=== PATIENT | female | born 2000 | race African-American/Black ===

== ENCOUNTER 2019-12-02 10:51 | Observation (INO) | payer BC, OTHER, SELFPAY ==
[2019-12-02] VITALS (7 sets, daily range): BP systolic 100–105; BP diastolic 50–66; PULSE 73–87; TEMP 36.8; BMI 30.7
--- NOTE | 2019-12-02 11:27 | OBADM ---
This patient, Karley Huerta, admitted to the OB room 116 at 1051 for observation for lower abdominal cramping. Patient/family oriented to hospital policies and general routines including ID bracelet, bed and alarms, visiting hours, pain management, procedures, bathroom and other care routines, personal items, smoking policy, room service/diet, and visiting hours. Patient/Family are encouraged to report perceived risks to care and to ask questions if they do not understand what they are told or what they should do.
[2019-12-02 11:28] LABS: Add Urine Microscopic? NO; Appearance Urine Clear (Clear); Bilirubin Urine Negative (Negative); Blood Urine Negative (Negative); Color Urine Yellow (Yellow); Glucose Urine UA Negative (Negative); Ketones Urine Negative (Negative); Leukocyte Esterase Ur Negative LEU/UL (Negative); Nitrate Urine Negative (Negative); Protein Urine Negative (Negative); Urobilinogen Urine Negative mg/dL (<2.0)
[2019-12-02 12:45] LABS: Fetal Fibronectin Negative
--- NOTE | 2019-12-08 11:20 | P.PNOB_ITS ---
OB - Triage/Final Diagnosis Visit Information Reason for evaluation: threatened labor Evaluation Laboratory results: Laboratory Tests 12/02/19 12/02/19 11:18 12:07 Urine Color Yellow Urine Appearance Clear Urine pH 6.0 Ur Specific [place] 1.020 Urine Protein Negative Urine Glucose (UA) Negative Urine Ketones Negative Ur Blood (Man) Negative Urine Nitrate Negative Urine Bilirubin Negative Urine Urobilinogen Negative Leukocyte Esterase Rfl Negative Fibronectin Negative
== END 2019-12-02 13:18 | disposition home or self-care (01) ==
PROVIDERS: Admitting Provider Obstetrics & Gynecology Gynecology; Visit Provider Obstetrics & Gynecology Gynecology
DX: O47.9 False labor, unspecified (principal); Z3A.00 Weeks of gestation of pregnancy not specified
CPT/HCPCS: 81003; 82731; G0378; G0379

== ENCOUNTER 2020-02-25 12:14 | Outpatient (CLI) | payer OTHER, SELFPAY ==
[2020-02-25 13:42] LABS: Hematocrit 36.5 % (37.0-47.0); Hemoglobin 11.5 g/dL (12.0-15.0); Immature Platelet Fraction Pct 4.3 % (0.9-11.2); Mean Corpuscular HGB Conc 31.5 g/dl (32-36); Mean Corpuscular Hemoglobin 25.7 pg (26-34); Mean Corpuscular Volume 81.5 fl (80-100); Mean Platelet Volume 10.8 fl (7.4-10.4); Platelet Count Result 175 k/mm3 (150-375); Red Blood Count 4.48 M/mm3 (4.2-5.4); Red Cell Distribution Width 23.1 % (11.5-14.5); White Blood Count 7.5 K/mm3 (4.5-10.0)
[2020-02-26 11:09] LABS: Rapid Plasma Reagin Non-Reactive (NonReactive)
== END 2020-02-25 12:15 | disposition home or self-care (01) ==
PROVIDERS: Visit Provider Obstetrics & Gynecology
DX: Z01.812 Encounter for preprocedural laboratory examination (principal); O34.219 Maternal care for unspecified type scar from previous cesarean delivery
CPT/HCPCS: 36415; 85027; 85055; 86592; 86850; 86900; 86901

== ENCOUNTER 2020-02-26 09:50 | Inpatient (IN) | payer OTHER, SELFPAY ==
[2020-02-26] VITALS (49 sets, daily range): BP systolic 80–99; BP diastolic 34–67; PULSE 47–87; RESP 16–18; TEMP 36.1–36.8; O2SAT 64–100
--- NOTE | 2020-02-26 09:56 | LDADM ---
This patient, Karley Huerta, was admitted to Labor/Delivery/Recovery 119 on 02/26/20 at 09:50. Plans for C/S, pain management and were discussed with patient. Patient/family oriented to hospital policies and general routines including ID bracelet, bed and alarms, visiting hours, pain management, procedures, bathroom and other care routines, personal items, smoking policy, room service/diet and guest tray routines, security routines, and visiting hours. Patient/Family are encouraged to report perceived risks to care and to ask questions if they do not understand what they are told or what they should do.
--- NOTE | 2020-02-26 10:34 | WPDANESEPP ---
Anes - Eval Pre Procedure Procedure: Operation Date: 02/26/20 12:00 Proposed Procedures p Repeat Section - Lorenzo Toledo MD Date/Time: 02/26/20 10:34 Pre Op Diagnosis: Repeat C/Section Patient Data Age: 19 Gender: F Height: 1.5 m Weight: 73.5 kg Last Vital Signs Pulse 87 02/26/20 10:15 BP 96/64 L 02/26/20 10:15 Allergies Allergy/AdvReac Type Severity Reaction Status Date / Time No Known Allergies Allergy Verified 02/26/20 10:21 Home Medications Medication Instructions Recorded Confirmed Type Classic 1 tablet PO DAILY 12/02/19 02/26/20 History ferrous sulfate 325 mg PO BID 12/02/19 02/26/20 History Patient hx anesthesia problems: none Family hx anesthesia problems: none PMFSH Family History Family History (Updated 02/07/20 @ 12:47 by Evelyn Louise RN) Other No pertinent family history Social History Social History Smoking status: Never smoker Substance use: never Gender identity (if verbalized by the patient): Female Spiritual care concerns: No Exam Day of Procedure 02/26/20 10:34 Patient weight: obese Heart: regular rate and rhythm Lungs: normal air movement Airway: Mallampati scale class 1 Neurological: alert and oriented
[2020-02-26] MEDS: LACTATED RINGERS 1,000 ML 125 ML IV CONT ×2 (10:37→11:40)
--- NOTE | 2020-02-26 10:44 | WPDANESEFPP ---
Anes - Eval Final PreProcedure Day of Procedure 02/26/20 10:44 Patient weight: obese Heart: regular rate and rhythm Lungs: clear to auscultation Airway: Mallampati scale class 1 Neurological: alert and oriented Last oral intake: >/= 8 hours ASA classification: II Emergent: no Anesthetic plan: proceed Anesthesia type and monitoring: regional spinal and standard monitoring Informed Consent: The patient's anesthetic plan and its attendant risks and benefits were discussed with the patient/family/POA. Questions were solicited and answers provided to the satisfaction of the patient/family/POA.
--- NOTE | 2020-02-26 11:24 | PM.IMHP ---
H&P: HPI History of Present Illness Date/Time: 02/26/20 11:24 Chief Complaint: desires repeat csection Narrative: Karley Huerta is a 19 year old female @ 39 weeks by lmp 05/29/19 c/w ultrasound for an EDC of 03/04/20. complicated by prior csection and anemia. Patient reports positive movement denies leakage of fluid and feels occasional contractions. Review of Systems Review of Systems: Narrative: back pain PMFSH Past Medical History Medical History (Updated 02/26/20 @ 11:28 by Lorenzo Toledo MD) Delivery with history of Family History Family History Other No pertinent family history Social History Social History Smoking status: Never smoker Substance use: never Gender identity (if verbalized by the patient): Female Spiritual care concerns: No Meds Home Medications and Allergies Home Medications Medication Instructions Recorded Confirmed Type Classic 1 tablet PO DAILY 12/02/19 02/26/20 History ferrous sulfate 325 mg PO BID 12/02/19 02/26/20 History Allergies Allergy/AdvReac Type Severity Reaction Status Date / Time No Known Allergies Allergy Verified 02/26/20 10:21 Vital Signs Vital Signs - 24 hr 02/26/20 10:15 02/26/20 10:41 02/26/20 10:47 Temperature 36.8 C Pulse Rate 87 Blood Pressure 96/64 L Pulse Oximetry 95 100 Exam Const: General: no acute distress Resp: Effort & Inspection: normal respiratory effort Cardio: Rate: regular rate Rhythm: regular rhythm GI: Other: Gravid nontender Assessment and Plan Assessment and plan (1) Delivery with history of : Code(s): O34.219 - Maternal care for unspecified type scar from previous delivery Status: Acute Assessment and Plan: Scheduled for a repeat csection. Risk and benefits reviewed with patient in detail. Patient agrees to proceed with csection.
[2020-02-26] MEDS: ceFAZolin 2 GM/D5W 50 ML 2 GM/50 ML BAG IVPB (11:54)
[2020-02-26] MEDS: LACTATED RINGERS 1,000 ML 999 ML IV CONT (12:16)
--- NOTE | 2020-02-26 12:49 | P.PCNOB_ITS ---
OB - Delivery Note Procedure Delivery date: 02/26/20 Procedure: Procedures Operation Date: 02/26/20 12:00 <No data on this case meets the specified criteria> Repeat LTCS events: Previous Intrapartal events: None Induction method: none Delivery monitor: external FHT and external uterine Route of delivery: Specimen: No Quantitative Blood Loss (ml): 505 Anesthesia type: Spinal Disposition: PACU [place] Baby Date of : 02/26/20 Time of : 12:21 Weeks of gestation at delivery: 39 Infant gender: Male Weight (pounds): 7 Weight (ounces): 12 presentation: vertex position: Left Occiput Anterior Placenta delivery description: Spontaneous cord vessel description: 3 Vessels score one minute: 8 score five minutes: 9
--- NOTE | 2020-02-26 12:51 | PM.PROC ---
Procedure Note - Detailed Date of procedure: 02/26/20 Pre-op diagnosis: Repeat C/Section Post-op diagnosis: same Procedure performed: repeat LTCS Description of procedure: Patient was taken to the operating room with IV running. She was prepped and draped in normal sterile fashion and placed a supine position with a leftward tilt. A Pfannenstiel skin incision was then made with a scalpel and carried down to the underlying layer of fascia. This excision was then extended bilaterally with Linares scissors. Superior aspect of the incision was grasped Judy and elevated and dissected off the rectus muscles. The inferior aspect of the incision was grasped with Judy clamps elevated and dissected off the rectus muscles. The rectus muscles were in the midline and peritoneum was entered bluntly bladder blade was inserted and the vesicouterine peritoneum was grasped with pickups and entered sharply with Metzenbaum scissors creating bladder flap with sharp and blunt dissection. Bladder blade was reinserted the lower uterine segment was incised in a transverse fashion. This incision was extended bluntly and the head was delivered atraumatically. The remainder of the fetus was delivered cord was clamped and cut the fetus was handed to awaiting nurse cord blood and cord gases were obtained. The placenta was delivered spontaneously. The uterus was exteriorized and cleared of all clots and debris. Uterine incision was closed with 0 Monocryl in running locked fashion a 2nd layer the same suture was used to imbricate this incision. Uterus was returned to the abdomen liver Interceed was placed in a T-fashion. The gutters were cleared of all clots and debris. The muscles were examined and noted to be hemostatic. The fascia was closed with 0 Vicryl in a running fashion. The subcutaneous tissue was irrigated hemostasis assured and the skin was closed with 0 Vicryl on a Eliot needle patient received 2 g Ancef prior to skin incision. Anesthesia: spinal Surgeon: Lorenzo Toledo MD Estimated blood loss (mL): 505 Urine output (mL): 100 Drains: No Packing: No Pathology: none sent Complications: None Condition: stable Disposition: PACU Findings: male inant normal tubes and ovaries.
[2020-02-26] MEDS: OXYTOCIN 30 UNITS/NS 500 ML 30 UNITS/500 ML BAG 125 UNITS IV CONT (13:03)
--- NOTE | 2020-02-26 15:45 | OBPPTRN ---
1504 Patient transferred to post room #284 via stretcher. Support person present. Oriented to unit, room, information board, rooming in, admission packet and security measures. Patient verbalizes understanding.
[2020-02-26] MEDS: KCL 20 MEQ/D5/0.45% SOD CHL 1,000 ML 125 ML (17:50)
--- NOTE | 2020-02-26 18:45 | PC.NURSE ---
Labor RN informed pt that she could eat a regular diet just to make it light. The pt V/U'd
[2020-02-26] MEDS: ACETAMINOPHEN 325 MG TABLET 650 MG PO (19:24)
[2020-02-26] MEDS: IBUPROFEN 600 MG TABLET PO (22:46)
[2020-02-27] MEDS: HYDROcodone/acetaminophen (*CRX) 5-325 MG TABLET 1 TAB PO ×3 (01:21→10:27)
[2020-02-27 04:00] VITALS: BP 101/46; PULSE 60; RESP 18; TEMP 36.4; O2SAT 100
[2020-02-27 04:59] LABS: Basophils Percent Auto 0.4 % (0.2-1.2); Eosinophils Absolute Auto 0.1 K/mm3 (0-0.3); Eosinophils Percent Auto 0.6 % (0-4.4); Hematocrit 31.4 % (37.0-47.0); Hemoglobin 10.1 g/dL (12.0-15.0); Immature Granulocyte Absolute 0.04 K/mm3 (0.00-0.031); Immature Granulocyte Percent A 0.5 % (0-0.5); Lymphocytes Percent Auto 16.4 % (18.3-44.2); Mean Corpuscular HGB Conc 32.2 g/dl (32-36); Mean Corpuscular Hemoglobin 25.6 pg (26-34); Mean Corpuscular Volume 79.7 fl (80-100); Mean Platelet Volume 10.5 fl (7.4-10.4); Monocytes Absolute Auto 0.6 K/mm3 (0.1-0.6); Monocytes Percent Auto 7.3 % (2.6-8.5); Neutrophils Absolute Auto 5.9 K/mm3 (1.3-6.7); Neutrophils Percent Auto 74.8 % (45.5-73.1); Platelet Count Result 155 k/mm3 (150-375); Red Blood Count 3.94 M/mm3 (4.2-5.4); Red Cell Distribution Width 22.6 % (11.5-14.5); White Blood Count 7.9 K/mm3 (4.5-10.0)
[2020-02-27] MEDS: IBUPROFEN 600 MG TABLET PO ×3 (05:48→20:30)
--- NOTE | 2020-02-27 07:43 | WPDANLDPN2 ---
Anes-Prog Note L&D Date/Time: 02/27/20 07:43 Comfortable throughout: section Neuraxial method: spinal Epidural/Spinal procedure site: clean & non-tender Neuro status: Neuro function grossly intact. Cardiovascular status: normal Respiratory status: normal Airway patency: baseline Mental status: baseline Post-Op hydration status: normal Vital Signs: Last Vital Signs Temp 36.4 C 02/27/20 04:00 Pulse 60 02/27/20 04:00 Resp 18 02/27/20 04:00 BP 101/46 L 02/27/20 04:00 Pulse Ox 100 02/27/20 04:00 Pain score (VAS): 0 I/O: Intake & Output 02/26/20 02/26/20 02/27/20 15:59 23:59 07:59 Intake Total 3050 500 800 Output Total 853 094 1785 Balance 2120 300 -800 Post-procedural complaints: none Patient feedback: Patient satisfied with anesthetic care.
--- NOTE | 2020-02-27 07:44 | WPDANLDNPN2 ---
Anes-Prog Note L&D-Neuraxial Date/Time: 02/27/20 07:44 Neuraxial medications: intrathecal PF morphine Opiod-related complaints: none Patient feedback: Patient satisfied with post-operative pain management.
[2020-02-27 07:55] VITALS: BP 97/55; PULSE 91; RESP 18; TEMP 36.8; O2SAT 100
[2020-02-27] MEDS: DOCUSATE SODIUM 100 MG CAPSULE PO ×2 (09:26→15:17)
[2020-02-27 12:45] VITALS: BP 98/57; PULSE 72; RESP 18; TEMP 36.7; O2SAT 100
[2020-02-27] MEDS: SIMETHICONE 80 MG TAB.CHEW PO (15:17)
[2020-02-27 19:57] VITALS: BP 101/60; PULSE 77; RESP 18; TEMP 37.2; O2SAT 100
[2020-02-27] MEDS: ACETAMINOPHEN 325 MG TABLET 650 MG PO (20:30)
[2020-02-28] MEDS: ACETAMINOPHEN 325 MG TABLET 650 MG PO (04:01)
[2020-02-28] MEDS: IBUPROFEN 600 MG TABLET PO ×2 (04:01→11:56)
[2020-02-28] MEDS: DOCUSATE SODIUM 100 MG CAPSULE PO (08:08)
[2020-02-28] MEDS: MULTIVIT/MIN/PREN/FOL AC/IRON TABLET 1 TAB PO (08:08)
[2020-02-28] MEDS: MEASLES,MUMPS,RUBELLA VACCINE 0.5 ML VIAL SUB-Q (08:08)
--- NOTE | 2020-02-28 08:10 | PC.NURSE ---
Patient instructed to view the discharge video Mother & Baby Care, The First Two Weeks . Patient was given the opportunity and encouraged to ask questions. Patient verbalized understanding of information shared and has been given the mother/baby guide for home reference.
[2020-02-28] MEDS: HYDROcodone/acetaminophen (*CRX) 5-325 MG TABLET 1 TAB PO ×2 (08:13→11:55)
[2020-02-28 08:20] VITALS: BP 99/59; PULSE 82; RESP 18; TEMP 36.9; O2SAT 100
--- NOTE | 2020-02-28 12:09 | PM.OBPNVD ---
OB - PN: Subj Subjective Date/time seen: 02/28/20 12:09 S: doing well no complaints OB - PN: Obj Data Labs CBC & Chem 7: 02/27/20 04:22 OB - PN A/P Assessment and Plan (1) Delivery with history of : Code(s): O34.219 - Maternal care for unspecified type scar from previous delivery Status: Acute Assessment and Plan: d/c home f/u in 1 week. Time Spent With Patient Time: Total time spent is greater than 50% in coordination of care (as documented) at patient's floor/unit and/or counseling patient: Exam GI: Other: incision c/d/i
--- NOTE | 2020-02-28 12:19 | PM.OBDSVD ---
DS: Admitting Diagnosis Admitting Diagnosis Admitting Diagnosis: repeat csection DS: Discharge Diagnosis Discharge Diagnosis (1) Delivery with history of : Code(s): O34.219 - Maternal care for unspecified type scar from previous delivery Status: Acute OB - DS: Summary OB Procedures : Ultrasound OB Procedures Intrapartum: low cervical, transverse OB Procedures: : None Peripartum Data Procedures: Procedures Operation Date: 02/26/20 12:00 Actual Procedures Side Surgeon p Section Lorenzo Toledo MD Time Spent with Patient Time attestation: Total time spent providing and/or coordinating discharge services: Exam GI: Other: incision c/d/i ff below umbilicus Discharge Plan Discharge Attending physician on discharge: Lorenzo Toledo Discharging Clinician: Lorenzo Toledo Patient Disposition: Home, Self-Care Activity: may shower and may drive after 2 weeks Diet: regular Discharge Instructions: Education: Mom and Baby Guide and Preeclampsia Handout Given to: Mother Follow-Up: Call your delivering provider's office for an appointment to be seen in: 1 Week Mom and baby should come to the [facility] for the follow-up appointment. Appointment Date/Time: February 29, 2020 at 10:00 am What to expect at your follow-up visit: Physical Assessment Call [phone] if you are unable to keep your appointment time. BREAST CARE: * Wear a snug supportive bra. * For engorgement discomfort: Bottle Feeding: * May apply ice packs ABDOMINAL INCISION: (if applicable) * Allow incision to air dry * Do NOT use lotions for powders on your incision * When showering, allow soap and water to run over the incision, but do not wash incision EPISIOTOMY/PERINEAL CARE: * Until bleeding stops, use your jazzmine bottle after urinating * Change your pad frequently throughout the day * No tub baths until seen by your physician - You may shower ACTIVITY: * Rest as much as possible. * Do not exercise or lift anything heavier than your baby (such as laundry or other children.) * Avoid stairs or driving as much as possible. * Do not put anything into the vagina. No douching, tampons, or sexual activity until seen by physician. NOTIFY PHYSICIAN IF YOU HAVE ANY QUESTIONS OR IF ANY OF THE FOLLOWING SYMPTOMS OCCUR: * If your incision becomes red, swollen, or more painful than what you have experienced in the hospital. * If your vaginal bleeding becomes foul smelling. * If your vaginal bleeding becomes more heavy than a period or if your bleeding changes from pink to bright red. However, you may pass an occasional walnut-sized clot once or twice for the first week . * If you experience a sharp, shooting pain in you calves. * If you discover a hard, reddened area on your breast or if you experience flu-like symptoms. DIET: * Eat regular, well-balanced meals. * Drink plenty of fluids daily. Stand Alone Forms: General Discharge Information Follow-up/Referrals: Lorenzo Toledo MD [Physician] - Discharge Medications: New ibuprofen 600 mg Tablet 600 mg PO Q6H PRN (Reason: Cramping) Qty: 60 RF: 0 Continued ferrous sulfate 325 mg (65 mg iron) Tablet 325 mg PO BID RF: 0 Classic 28 mg iron- 800 mcg Tablet 1 tablet PO DAILY RF: 0 Date of admission: 02/26/20 09:50 Primary Care Provider: PHYSICIAN,DIRECTOR FUNDS DEVELOPMENT Admitting Provider: Lorenzo Toledo Attending physician on admission: Lorenzo Toledo Condition: Stable
[2020-02-29 10:41] VITALS: BP 115/65; PULSE 85; RESP 20; TEMP 36.9; O2SAT 100
== END 2020-02-28 13:55 | disposition home or self-care (01) | DRG 788 ==
LOC: ANHLDR 12:49 → ANHOB2 15:19
PROVIDERS: Admitting Provider Obstetrics & Gynecology; Visit Provider Obstetrics & Gynecology
PROC: 10D00Z1 Extraction of Products of Conception, Low, Open Approach (ICD-10-PCS; CPT 59514; principal; 2020-02-26 12:00)
DX: O34.211 Maternal care for low transverse scar from previous cesarean delivery (principal); Z37.0 Single live birth; Z3A.39 39 weeks gestation of pregnancy; O99.214 Obesity complicating childbirth; E66.9 Obesity, unspecified
CPT/HCPCS: 36415; 85025; 85027; 85055; 86592; 86850; 86900; 86901; 90710; A9270; J0131; J0690; J2274; J2590; J3480; J7120

== ENCOUNTER 2022-07-14 07:56 | Outpatient (CLI) | payer OTHER, SELFPAY ==
--- NOTE | ~2022-07-14 | US_ITS ---
US breast LT complete DATE: 07/14/2022 08:20 INDICATION: Palpable lumps of left breast at 11:00 and 1:00, with some tenderness. No right breast co mplaints. TECHNIQUE: Real-time and color flow imaging of the complete left breast COMPARISON: None FINDINGS: 1:00 5 cm from nipple: Parallel circumscribed hypoechoic solid lesion measuring approximately 1.3 x 2 .2 x 2.3 cm, with through transmission and posterior enhancement, minimal internal vascularity. This is likely a benign fibroadenoma. 1:00 7.5 cm from nipple: Parallel circumscribed 3 x 7 x 8.5 mm lesion, slight interval vascularity, n o posterior shadowing, likely a benign lesion, probably a small fibroadenoma 1:00 6.5 cm from nipple: Parallel circumscribed 5 x 12 x 10 mm lesion with through transmission, some internal fat density, no internal vascularity, likely benign, possibly fibroadenoma or hamartoma. No suspicious mass or shadowing is detected. IMPRESSION: BI-RADS Category 3: Probably benign findings Recommendation: 6 month targeted left breast ultrasound follow-up Reviewed, dictated and finalized at [facility] Reviewed, dictated and finalized at [facility].
== END 2022-07-14 07:57 ==
PROVIDERS: PCP Nurse Practitioner; Visit Provider Nurse Practitioner
DX: N63.20 Unspecified lump in the left breast, unspecified quadrant (principal)
CPT/HCPCS: 76641

== ENCOUNTER 2022-08-05 10:14 | Outpatient (CLI) | payer OTHER, SELFPAY ==
--- NOTE | ~2022-08-05 | US_ITS ---
EXAMINATION: US transvaginal DATE: 08/05/2022 10:40 INDICATION: Missing IUD strings. Adnexal fullness. Comparison:No prior studies for comparison. TECHNIQUE: Multiple transabdominal and endovaginal sonographic images of the pelvis performed. FINDINGS: The uterus measures 8.7 x 4.6 x 4.4 cm. IUD is present in the endometrium. The endometrial complex measures 9 mm. The right ovary measures 2.7 x 1.6 x 1.7 cm and the left ovary measures 2.6 x 2.2 x 3.1 cm. There is a left ovarian cyst measuring 1.6 cm. There are small follicles in each ovary. Normal doppler signal in both ovaries. There is no free fluid in the pelvis. There are no abnormal masses seen on either side. IMPRESSION: 1. IUD in expected position in the endometrium. 2: Left ovarian cyst measuring 1.6 cm. Reviewed, dictated and finalized at [facility].
== END 2022-08-05 10:15 ==
PROVIDERS: PCP Nurse Practitioner; Visit Provider Nurse Practitioner
DX: Z30.431 Encounter for routine checking of intrauterine contraceptive device (principal); N83.202 Unspecified ovarian cyst, left side
CPT/HCPCS: 76830

== ENCOUNTER 2023-05-25 09:13 | Outpatient (CLI) | payer OTHER, SELFPAY ==
--- NOTE | ~2023-05-25 | US_ITS ---
US breast LT limited DATE: 05/25/2023 09:39 INDICATION: Follow-up of 07/14/2022 left complete breast ultrasound findings TECHNIQUE: Limited left breast ultrasound examination with color flow imaging COMPARISON: 07/14/2022 complete left breast ultrasound examination FINDINGS: 1:00 6.5 cm from nipple: Parallel circumscribed complex mixed sonolucent and predominantly solid lesi on with internal vascularity, measuring 2.8 x 1.4 x 2.4 cm dimension. There is internal vascularity T here is through transmission and posterior enhancement. 1:00 7 cm from nipple: Parallel circumscribed hypoechoic solid lesion measuring 5.6 x 13 x 14 mm, wit h mild internal vascularity, with through transmission. IMPRESSION: Probably benign findings Recommendation: Six month follow up ultrasound examination is recommended. BI-RADS Category 3: Probably benign Reviewed, dictated and finalized at [facility] Reviewed, dictated and finalized at [facility].
== END 2023-05-25 09:14 ==
LOC: MICIMG 09:14
PROVIDERS: PCP Obstetrics & Gynecology Gynecology; Visit Provider Obstetrics & Gynecology Gynecology
DX: N63.20 Unspecified lump in the left breast, unspecified quadrant (principal); R92.8 Other abnormal and inconclusive findings on diagnostic imaging of breast
CPT/HCPCS: 76642

== ENCOUNTER 2024-03-29 13:12 | Outpatient (CLI) | payer OTHER, SELFPAY ==
--- NOTE | ~2024-03-29 | US_ITS ---
EXAMINATION: US transvaginal DATE: 03/29/2024 13:43 INDICATION: Pelvic pain TECHNIQUE: Multiple endovaginal sonographic images of the pelvis were obtained. COMPARISON: 08/05/2022 FINDINGS: The uterus measures 9.0 x 4.5 x 4.9 cm. The endometrial complex measures 3 mm in thickness. Linear e chogenic and shadowing IUD seen within the endometrial canal is positioned more caudally than typical with the proximal stem at the lower uterine segment. One of the linear echogenic Rosana limbs appears to project into the myometrium posterior to the endometrial complex at the uterine body. The right ov harinder measures 1.7 x 1.5 x 0.9 cm. The left ovary measures 2.5 x 2.4 x 1.9 cm. Vascular flow identified in both ovaries on color Doppler. There is no free fluid in the pelvis. IMPRESSION: 1. IUD positioned more caudally in the uterus than typical with proximal stem positioned at the lower uterine segment in with one of the cross limbs appearing to project into the myometrium posterior to the central canal. Reviewed, dictated and finalized at [facility]. TER WAITER IMPRESSION: 1. IUD positioned more caudally in the uterus than typical with proximal stem p ositioned at the lower uterine segment in with one of the cross limbs appearing to project into the myometrium posterior to the central canal.
== END 2024-03-29 13:13 | disposition home or self-care (01) ==
PROVIDERS: PCP Obstetrics & Gynecology Gynecology; Visit Provider Obstetrics & Gynecology Gynecology
DX: N83.202 Unspecified ovarian cyst, left side (principal); Z97.5 Presence of (intrauterine) contraceptive device
CPT/HCPCS: 76830